=== PATIENT | male | born 1990 | race Caucasian/White ===

== ENCOUNTER 2018-12-10 01:12 | Emergency (ER) | payer SELFPAY ==
[2018-12-10] MEDS ORDERED: Bacitracin Oint 1 GM U/D Packet TOP ONE (01:23)
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
== END 2018-12-10 01:44 ==
LOC: MW.ED 01:12
DX: S00.83XA Contusion of other part of head, initial encounter (principal); S09.92XA Unspecified injury of nose, initial encounter; Y04.0XXA Assault by unarmed brawl or fight, initial encounter
CPT/HCPCS: 99283

== ENCOUNTER 2019-05-31 11:13 | Emergency (ER) | payer SELFPAY ==
[2019-05-31 12:43] LABS: BLOOD UREA NITROGEN,BUN 5 mg/dL (7.0-18.0); CARBON DIOXIDE,CO2 27.8 mmol/L (21.0-32.0); CHLORIDE,CL 111 mmol/L (98-107); GLUCOSE RANDOM 100 mg/dL (74-106); POTASSIUM,K 3.8 mmol/L (3.5-5.1); SODIUM,NA 148 mmol/L (136-148)
[2019-05-31 13:00] LABS: ACETAMINOPHEN <2.0 ug/mL
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
[2019-05-31] MEDS ORDERED: LORazepam 1 MG Tab PO ONE ×2 (14:06→16:43)
[2019-05-31] MEDS ORDERED: LORazepam 1 MG Tab ONE ×2 (14:06→16:44)
== END 2019-05-31 16:54 ==
LOC: MW.ED 11:13
DX: F43.10 Post-traumatic stress disorder, unspecified (principal); F22 Delusional disorders; J45.909 Unspecified asthma, uncomplicated; F17.200 Nicotine dependence, unspecified, uncomplicated; Z91.14 Patient's other noncompliance with medication regimen
CPT/HCPCS: 36415; 80053; 80305; 80320; 80329; 81001; 83735; 84443; 85025; 93005; 99285; A9270; 99284; G0480